=== PATIENT | male | born 1995 | race Two or more races ===

== ENCOUNTER → 2018-03-31 | Outpatient (CLI) | payer OTHER ==
--- NOTE | 2018-03-31 13:56 | Diagnostic Imaging Report ---
Indication:Scrotal pain Technique: Real time grayscale and duplex Doppler imaging of the scrotum performed. Comparison: None Findings: The size, contour, and echogenicitiy of the testis appear normal bilaterally. Right testis measures 3.9 x 1.9 x 3 cm. Left testis 3.5 x 1.8 x 2.9 cm. Small bilateral hydroceles are noted. There is no testicular mass or evidence of torsion. There is good doppler evidence of blood flow within both testes. Epididimi are noted. Small epididymal cysts are present bilaterally. Impression: Small bilateral hydroceles. No evidence of testicular mass or torsion. Tiny bilateral epididymal cysts
== END | disposition home or self-care (01) ==
LOC: ULS 12:49
DX: N50.82 Scrotal pain (principal); N43.3 Hydrocele, unspecified; N50.3 Cyst of epididymis
CPT/HCPCS: 76870